=== PATIENT | male | born 1965 | race Two or more races ===

== ENCOUNTER 2018-03-03 09:08 | Emergency (ER) | payer OTHER ==
[~2018-03-03] VITALS: Ht 195.6 cm; Wt 93.0 kg
[2018-03-03 09:18] VITALS: Ht 195.6 cm; Wt 93.0 kg
[2018-03-03 10:09] LABS: BASOPHIL % 0.7 % (0-2); PLATELET COUNT 234 x10^3mcL (130-400); RED CELL DISTRIBUTION WIDTH 13.1 % (11.5-14.5)
[2018-03-03 10:28] LABS: CALCIUM 9.1 mg/dL (8.5-10.1); CARBON DIOXIDE 27.5 mmol/L (21-32); CHLORIDE SERUM 105 mmol/L (98-107); CREATININE SERUM 1.1 mg/dL (0.7-1.3); GFR1 > 60 mL/min; GLUCOSE SERUM 103 mg/dL (74-106); POTASSIUM SERUM 4.4 mmol/L (3.5-5.1); SODIUM SERUM 140 mmol/L (136-145)
[2018-03-03 10:32] LABS: ALBUMIN 4.3 g/dL (3.4-5.0); ALKALINE PHOSPHATASE 66 U/L (46-116); ALT/SGPT 28 U/L (16-63); AST/SGOT 27 U/L (15-37); BILIRUBIN TOTAL 1.68 mg/dL (0.20-1.00); TOTAL PROTEIN, SERUM 7.9 g/dL (6.4-8.2)
[2018-03-03 12:01] VITALS: BP 120/67
[2018-03-03 13:24] LABS: MAGNESIUM 2.1 mg/dL (1.8-2.4); PHOSPHOROUS 2.4 mg/dL (2.5-4.9)
[2018-03-03 13:31] LABS: T3 TOTAL 1.24 ng/mL
[2018-03-03 13:47] LABS: CHOLESTEROL/HDL RATIO 3.2
[2018-03-03 15:18] LABS: FREE T4 1.08 ng/dL (0.76-1.46); FREE THYROXINE INDEX 2.9 ug/dL (1.4-4.5); T4(THYROXINE) 7.9 ug/dL (4.7-13.3)
== END 2018-03-03 12:01 | disposition left against medical advice (07) ==
LOC: ED 09:08 → DU 11:30 → ED 11:30
PROVIDERS: Emergency Medicine; Family Medicine
DX: F41.9 Anxiety disorder, unspecified (principal); R07.89 Other chest pain; Z91.041 Radiographic dye allergy status
CPT/HCPCS: 36415; 83880; 84439; Q0092

== ENCOUNTER 2018-03-03 16:16 | Emergency (ER) | payer OTHER ==
[~2018-03-03] VITALS: Ht 188 cm; Wt 93.5 kg
[2018-03-03 16:25] VITALS: Ht 188 cm; Wt 93.5 kg
[2018-03-03 18:13] VITALS: BP 130/87
== END 2018-03-03 18:13 | disposition home or self-care (01) ==
LOC: ED 16:16
DX: F41.9 Anxiety disorder, unspecified (principal); Z91.041 Radiographic dye allergy status

== ENCOUNTER 2018-03-21 21:33 | Emergency (ER) | payer OTHER ==
[~2018-03-21] VITALS: Ht 188 cm; Wt 91.2 kg
[2018-03-21 21:38] VITALS: Ht 188 cm; Wt 91.2 kg
[2018-03-21 23:46] VITALS: BP 139/95
== END 2018-03-21 23:46 | disposition home or self-care (01) ==
LOC: ED 21:33
DX: F45.8 Other somatoform disorders (principal); F54 Psychological and behavioral factors associated with disorders or diseases classified elsewhere; Z91.041 Radiographic dye allergy status

== ENCOUNTER 2018-03-27 06:30 | Emergency (ER) | payer OTHER ==
[~2018-03-27] VITALS: Ht 188 cm; Wt 89.8 kg
[2018-03-27 09:30] VITALS: BP 140/84
== END 2018-03-27 09:30 | disposition home or self-care (01) ==
LOC: ED 06:30
DX: F41.9 Anxiety disorder, unspecified (principal); G47.00 Insomnia, unspecified; Z91.041 Radiographic dye allergy status

== ENCOUNTER 2018-03-31 17:00 | Emergency (ER) | payer OTHER ==
[~2018-03-31] VITALS: Ht 188 cm; Wt 89.4 kg
[2018-03-31 17:28] VITALS: BP 139/86
== END 2018-03-31 17:28 | disposition home or self-care (01) ==
LOC: ED 17:00
DX: R20.2 Paresthesia of skin (principal); R53.1 Weakness; F51.04 Psychophysiologic insomnia; Z91.041 Radiographic dye allergy status